=== PATIENT | female | born 1965 | race Caucasian/White ===

== ENCOUNTER 2016-07-17 12:27 | Emergency (ER) | payer MEDICARE, OTHER ==
[~2016-07-17] VITALS: Ht 162.6 cm; Wt 120.2 kg
[2016-07-17 13:40] VITALS: BP 142/95
[2016-07-17] MEDS ORDERED: NAPROXEN 500 MG TABLET PO STA (14:12)
[2016-07-17] MEDS ORDERED: HYDROCODONE/APAP 5/325MG TABLET. PO ONE (14:15)
--- NOTE | 2016-07-17 14:31 | RAD ---
Examination: 3 views of the left ankle History: History of twisted left ankle last night, pain, swelling Comparison: None available Findings: The alignment of the ankle joint grossly appears unremarkable. There is mild soft tissue swelling identified surrounding the ankle joint. An obvious acute fracture is not visualized. There is a well formed density identified just distal to the lateral malleolus could be old avulsion fracture or an ossicle. A small inferior plantar calcaneal enthesophyte is identified. Impression: 1. No acute osseous findings. A well formed bone density identified just distal to lateral malleolus likely old avulsion fracture or unfused ossicle. 2. Mild soft tissue swelling identified surrounding the ankle joint.
[2016-07-17] MEDS ORDERED: NAPR500T8 PO (14:52)
--- NOTE | 2016-07-17 14:52 | PHYS DOC ---
Past Medical History Past Medical History: Bipolar Past Surgical History: Additional Information: 1 PPD Alcohol Use: Rarely Drug Use: None Adult General Chief Complaint Chief Complaint: MECHANICAL FALL HPI HPI Patient is a 51 year old female with history of bipolar who presents today with mild left lateral ankle pain that began yesterday after she fell down. Patient states she was celebrating her birthday with friends and was wearing high heels when she rolled her left ankle and fell. The patient denies any loss of consciousness. Review of Systems Review of Systems Constitutional: Denies fever or chills [] Eyes: Denies change in visual acuity, redness, or eye pain [] Musculoskeletal: Left lateral ankle pain Integument: Denies rash or skin lesions [] Neurologic: Denies headache, focal weakness or sensory changes [] Endocrine: Denies polyuria or polydipsia [] Current Medications Current Medications Current Medications Medications (Trade) Dose Ordered Sig/Guillaume Start Time Stop Time Status Last Admin Dose Admin Acetaminophen/ Hydrocodone Bitart (Lortab 5/325) 1 tab 1X ONCE 07/17/16 14:15 07/17/16 14:16 DC 07/17/16 14:44 1 TAB Naproxen (Naprosyn) 500 mg 1X STAT 07/17/16 14:12 07/17/16 14:14 DC 07/17/16 14:44 500 MG Allergies Allergies Allergies Coded Allergies Type Severity Reaction Last Updated Verified No Known Drug Allergies 06/05/13 No Physical Exam Physical Exam Constitutional: Well developed, well nourished, no acute distress, non-toxic appearance. [] HENT: Normocephalic, atraumatic, bilateral external ears normal, oropharynx moist, no oral exudates, nose normal. [] Skin: Warm, dry, no erythema, no rash. [] Back: No tenderness, no CVA tenderness. [] Extremities: Left ankle with moderate soft tissue swelling. Tenderness on palpation of the left lateral ankle. Slightly Limited range of motion to the left foot and ankle due to pain. +2 left pedal pulse. Cap refill less than 2 seconds and left lower extremity. Sensation intact to the left lower extremity. Neurologic: Alert and oriented X 3, normal motor function, normal sensory function, no focal deficits noted. [] Psychologic: Affect normal, judgement normal, mood normal. [] Current Patient Data Vital Signs Vital Signs Date Time Temp Pulse Resp B/P Pulse Ox O2 Delivery O2 Flow Rate FiO2 07/17/16 14:44 Room Air 07/17/16 13:40 97.8 107 20 142/95 96 97.8 EKG EKG [] Radiology/Procedures Radiology/Procedures []PROCEDURE: ANKLE LEFT 3V Examination: 3 views of the left ankle History: History of twisted left ankle last night, pain, swelling Comparison: None available Findings: The alignment of the ankle joint grossly appears unremarkable. There is mild soft tissue swelling identified surrounding the ankle joint. An obvious acute fracture is not visualized. There is a well formed density identified just distal to the lateral malleolus could be old avulsion fracture or an ossicle. A small inferior plantar calcaneal enthesophyte is identified. Impression: 1. No acute osseous findings. A well formed bone density identified just distal to lateral malleolus likely old avulsion fracture or unfused ossicle. 2. Mild soft tissue swelling identified surrounding the ankle joint. DICTATED and SIGNED BY: CHRIS RICE MD DATE: 07/17/168 CC: BEATA BEEBE APRN; UNKNOWN PCP NAME ~ Course & Med Decision Making Course & Med Decision Making Pertinent Labs and Imaging studies reviewed. (See chart for details) Patient is in the ED with left ankle pain after rolling the ankle yesterday. Left ankle x-rays interpreted by radiologist have no acute findings. Air cast applied to the left ankle by the ED RN, neurovascular exam done by me is normal , cap refill less than 2 seconds. Ice elevation encouraged. Naproxen for pain. Follow-up with ortho in one week if pain continues. Dragon Disclaimer Dragon Disclaimer This electronic medical record was generated, in whole or in part, using a voice recognition dictation system. Departure Departure Impression: Primary Impression: Left ankle sprain Additional Impression: Fall from standing Disposition: HOME, SELF-CARE Condition: STABLE Referrals: UNKNOWN PCP NAME (PCP) JUDITH HENAO MD Follow-up with him in one week Patient Instructions: Ankle Sprain Additional Instructions: You were seen for left ankle sprain. Ice and elevate the extremity. Take over- the-counter pain relievers especially anti-inflammatories as needed for pain. Follow-up with an orthopedic doctor in one week if pain continues. Scripts Naproxen 500 Mg Tablet.dr1 Tab PO BID #30 TAB Ref 0 Prov:[facility] 07/17/16 Problem Qualifiers Primary Impression: Left ankle sprain Encounter type: initial encounter Involved ligament of ankle: unspecified ligament Qualified Code: S93.402A - Sprain of unspecified ligament of left ankle, initial encounter Additional Impression: Fall from standing Encounter type: initial encounter Qualified Code: W19.XXXA - Unspecified fall, initial encounter [facility] Jul 17, 2016 14:52
== END 2016-07-17 15:37 | disposition home or self-care (01) ==
LOC: ER 12:27
DX: S93.402A Sprain of unspecified ligament of left ankle, initial encounter (principal); F31.9 Bipolar disorder, unspecified; F17.210 Nicotine dependence, cigarettes, uncomplicated; W18.39XA Other fall on same level, initial encounter; Y93.89 Activity, other specified; Y92.89 Other specified places as the place of occurrence of the external cause; Y99.8 Other external cause status
CPT/HCPCS: 73610; 99284; L4350